=== PATIENT | male | born 1995 | race Caucasian/White ===

== ENCOUNTER 2019-12-05 14:06 | Emergency (ER) | payer SELFPAY ==
[2019-12-05 14:22] VITALS: BP 130/91
--- NOTE | 2019-12-05 14:33 | UC ---
Dental HPI - HPI Summary HPI Summary: Nurse's notes: Dental pain right lower jaw. Pt. states onset of mild discomfort 2 mos. ago, approx 1.5 mos ago pt's tooth cracked losing some, what pt. believes was enamel, 3 weeks ago some of the tooth broke away. Pt. was seen in the ED approx 2 wks ago and prescribed Vicodin. Today pt's cheek is swollen and pain radiated toward his throat. Dentists are closed due to current pandemic. The patient states that he has talked with one dentist who stated to him he would not pull the tooth as long as there is an infection present so the patient may be able to follow-up with that dentist, however the patient has no dental insurance. When he was at [facility] he was put in contact with a person who can help him get dental insurance. He is presently working with that person to obtain that. - History of Current Complaint Chief Complaint: UCDentalProblem Stated Complaint: tooth pain Time Seen by Provider: 12/05/19 14:23 Hx Obtained From: Patient Onset/Duration: Gradual Onset, Lasting Weeks Severity: Moderate Pain Intensity: 7 Aggravating Factor(s): Chewing Alleviating Factor(s): Nothing - Allergies/Home Medications Allergies/Adverse Reactions: Allergies Allergy/AdvReac Type Severity Reaction Status Date / Time No Known Allergies Allergy Verified 12/05/19 14:15 Home Medications: Home Medications Ibuprofen TAB* [Advil TAB*] 400 mg PO Q6H PRN 06/21/14 [History Confirmed ] Amoxicillin PO (*) [Amoxicillin 875 MG (*)] 875 mg PO BID 10 Days #20 tab [Rx] PMH/Surg Hx/FS Hx/Imm Hx Previously Healthy: Yes - Surgical History Surgical History: None - Family History Known Family History: Positive: Unknown - Social History Lives: With Family Alcohol Use: Rare Substance Use Type: None Smoking Status (MU): Current Every Day Smoker Type: Cigarettes Amount Used/How Often: 1/4 ppd Length of Time of Smoking/Using Tobacco: 2.5 yrs Have You Smoked in the Last Year: Yes - Immunization History Vaccination Up to Date: Yes Review of Systems All Other Systems Reviewed And Are Negative: Yes ENT: Positive: Dental Pain - Right lower distal molar is the affected tooth. Is Patient Immunocompromised?: No Physical Exam Triage Information Reviewed: Yes Appearance: Well-Appearing, No Pain Distress, Well-Nourished Vital Signs: Initial Vital Signs Temp 98.1 F 12/05/19 14:17 Pulse 60 12/05/19 14:17 Resp 24 12/05/19 14:17 BP 130/91 12/05/19 14:17 Pulse Ox 100 12/05/19 14:17 Vital Signs Reviewed: Yes Eyes: Positive: Conjunctiva Clear ENT: Positive: Pharynx normal, TMs normal, Uvula midline Dental: Positive: Gross Decay/Caries @ - Right lower distal molar broken, gumline mildly swollen and erythematous, no evidence of abscess, gumlime is tender on palpation. Neck exam: Normal Dental Complaint Course/Dx - Course Course Of Treatment: Pt is comfortable here. We discussed follow up with the person at [facility] [place] who can help him with insurance. He is to alternate pain meds as discussed. He is to continue to try and contact his dentist for further care. - Differential Dx/Diagnosis Provider Diagnosis: Toothache Discharge ED - Sign-Out/Discharge Documenting (check all that apply): Patient Departure All imaging exams completed and their final reports reviewed: No Studies - Discharge Plan Condition: Fair Disposition: HOME Prescriptions: Amoxicillin PO (*) [Amoxicillin 875 MG (*)] 875 mg PO BID 10 Days #20 tab Patient Education Materials: Toothache (ED) Referrals: [facility] [Outside] No Primary Care Phys,NOPCP [Primary Care Provider] - Additional Instructions: ALternate Tylenol every 4 hours with Advil 600 mg every 8 hours for pain. May apply ice to the area. Follow up with the person at the hospital regarding health insurance. - Billing Disposition and Condition Condition: FAIR Disposition: Home
== END 2019-12-05 14:43 | disposition home or self-care (01) ==
LOC: UCCORT 14:06
DX: K08.89 Other specified disorders of teeth and supporting structures (principal); K02.9 Dental caries, unspecified; F17.210 Nicotine dependence, cigarettes, uncomplicated
CPT/HCPCS: 99202; G0463